=== PATIENT | male | born 1980 | race Caucasian/White ===

== ENCOUNTER 2019-01-27 02:22 | Emergency (ER) | payer SELFPAY ==
[~2019-01-27 02:22] MED LIST: EPINEPHrine 1:10,000 1 MG/10 ML Syringe IVPUSH ONE; Sodium Chloride 0.9% 1,000 ML IV ONE
[2019-01-27] MEDS ORDERED: 25% Dextrose in Water 10 ML Syringe IV ONE (02:23)
[2019-01-27] MEDS ORDERED: Atropine 0.1 MG/ML 10 ML Syringe IV ONE (02:23)
[2019-01-27] MEDS ORDERED: Sodium Chloride 0.9% 1,000 ML IV SCH (02:25)
[2019-01-27] MEDS ORDERED: EPINEPHrine 1:10,000 1 MG/10 ML Syringe IVPUSH ONE ×2 (02:25→02:30)
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
== END 2019-01-27 05:30 | disposition expired ==
LOC: MW.ED 02:22
DX: I46.9 Cardiac arrest, cause unspecified (principal); S72.92XB Unspecified fracture of left femur, initial encounter for open fracture type I or II; S60.222A Contusion of left hand, initial encounter; S29.9XXA Unspecified injury of thorax, initial encounter; S30.811A Abrasion of abdominal wall, initial encounter; V89.2XXA Person injured in unspecified motor-vehicle accident, traffic, initial encounter
CPT/HCPCS: 36415; 36430; 86900; 86901; 86920; 86921; 86922; 92950; 99285; G0390; J0171; J0461; J7040; P9016